=== PATIENT | female | born 1960 | race Caucasian/White ===

== ENCOUNTER 2016-12-19 07:25 | Inpatient (IN) | payer OTHER ==
[~2016-12-19] VITALS: Ht 160 cm; Wt 145.8 kg
--- NOTE | ~2016-12-19 | HC ---
[facility] [place] [place] [address] CONSULTATION Name: HOMERO PHILLIPS Joana Room #: 440-P [facility] IN .R.#: [id number] Admission: 12/19/16 Attend Phys: Esther Costa MD Discharge: Date of : 58 Report #: [id number] THIS REPORT FOR: //name// CC: Manpreet Costa DATE OF SERVICE: 12/19/2016 ATTENDING PHYSICIAN: Esther Costa MD CONSULTATION REQUESTED BY: Nunu Serrato RN. REASON FOR CONSULTATION: Fever. HISTORY OF PRESENT ILLNESS: The patient is a 56-year-old white woman admitted through the emergency room with history of fever as high as 102.8. Apparently, she visited with Dr. Archuleta yesterday and was just a routine visit with no complaints whatsoever, but by the time she got into her car, she was feeling cold, needing to warm up the car. She later on went onto developing high fevers of 102.8 associated with headaches and significant neck pain. The patient even reported photophobia. On account of this, she underwent a spinal tap in the emergency room and the CSF, totally normal. At present, the patient continues to have body aches and pains and significant neck pain worsened by any movement. She is scheduled to have a CT scan of the neck. The patient remembers that in 2008 or thereabout had cellulitis of the leg with group G streptococcus infection and she believes I took care of her at that point in time. Somehow those records were deleted. PAST MEDICAL HISTORY: Morbid obesity. Hypertension. Cardiomyopathy, congestive heart failure. Migraine. Obstructive sleep apnea. Diabetes mellitus. Diagnostic laparoscopic and open repair of incarcerated abdominal wall hernia. History of . MEDICATIONS: She is on treatment with telmisartan (Micardis) 80 mg daily, amlodipine 10 mg daily, spironolactone 50 mg daily, metformin 500 mg b.i.d. with meal, glimepiride 4 mg daily, and Lasix 40 mg daily. Here in the hospital, the patient has received treatment with spironolactone, amlodipine, pantoprazole, docusate, insulin lispro per sliding scale, intravenous fluids, sodium chloride 1000 mL every 12 hours, p.r.n. acetaminophen and glucagon. She had received vancomycin single dose, azithromycin, acyclovir, and Rocephin 2 g. SOCIAL HISTORY: . Disabled. 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 No tobacco. No alcohol. REVIEW OF SYSTEMS: Essentially noncontributory besides what has been stated above. [address] [address] CONSULTATION Name: HOMERO PHILLIPS Room #: 440-P [facility] IN M.R.#: [id number] Admission: 12/19/16 Attend Phys: Esther Costa MD Discharge: Date of : 58 Report #: [id number] PHYSICAL EXAMINATION: GENERAL: This is a morbidly obese white woman. VITAL SIGNS: Temperature 100, pulse 109, respirations 18, BP 165/85, height 5 feet 3 inches, and weight 320 pounds. HEENMT: Head normocephalic and atraumatic. Pupils reactive. Mouth, carious teeth, missing teeth, poor oral hygiene, needs dental extraction. NECK: Stiff. Difficult to examine because of obesity. LUNGS: Clear. HEART: S1, S2. No gallop. ABDOMEN: Morbidly obese with a huge abdominal wall panniculus with hyperpigmentation and scaling of the skin of the lower abdomen panniculus. PELVIC: Deferred. RECTAL: Deferred. EXTREMITIES: No clubbing or cyanosis. NEUROLOGIC: Grossly within normal limits. LABORATORY DATA: Spinal fluid revealed a glucose of 144 mg/dL, remainder normal. Sodium 131, potassium 4.1, BUN 19, creatinine 1.4, glucose 289, total bilirubin 1.3, alkaline phosphatase 104, albumin 2.7, lactic acid initially elevated at 2.3, goes down to 1.1 rapidly, protime 9.9. WBC 16,400, hemoglobin 11.9 g/dL, platelets 315,000. White blood cell count differential 78% neutrophils, 14% lymphocytes. The urinalysis revealed trace protein, 1+ ketones, otherwise negative. MICROBIOLOGY DATA: Blood cultures were obtained, they remained negative so far. Nasopharyngeal swab negative for influenza A and B antigens. Note is made on April 2009, she had group G streptococcus infection bacteremia secondary to cellulitis, right lower extremity. RADIOLOGY EVALUATION: Chest x-ray done on admission revealed no significant abnormalities. A CT scan of the brain revealed no significant abnormalities. ASSESSMENT: 1. Febrile illness, associated with significant neck pain of undetermined etiology, must rule out a pharyngeal abscess, though I doubt. 2. Morbid obesity. 3. Leukocytosis. 4. Mild lactic acidosis, improved, resolved. 5. Anemia. 6. History of cellulitis, right lower extremity complicated by bacteremia with group G streptococcus. 7. Cardiomyopathy. 8. Obstructive sleep apnea. 9. Type 2 diabetes mellitus. [facility] [address] [place] [address] CONSULTATION Name: HOMERO PHILLIPS Room #: 440-P ADM IN M.R.#: [id number] Admission: 12/19/16 Attend Phys: Esthre Costa MD Discharge: Date of : 58 Report #: [id number] SUGGESTIONS: Recommend Rocephin 1 gram IV daily. Obtain CRP, ESR and procalcitonin. Doubt we are dealing with a bacterial infection. If the patient continues to look this well and cultures remain negative, may discontinue all antibiotics within 24-48 hours. Thank you very much for requesting my suggestions in the care of your patient and I will continue to follow her along with you. <ELECTRONICALLY SIGNED> By: Chele Modi MD 12/23/16 1232 [id number] Chele Modi MD /nt
[~2016-12-19 07:25] MED LIST: ALDACTONE50 MG PO; AMARYL4 MG PO; LASIX 40 MG TAB40 M2 PO; METFORMIN HCL500 MG PO; MICARDIS 80 MG80 MG PO; NORVASC10 MG PO
[2016-12-19 07:31] VITALS: BP 165/85
[2016-12-19] MEDS ORDERED: LASIX 40 MG TAB40 M2 PO (07:52)
[2016-12-19 08:12] LABS: ABSOLUTE NEUTROPHILS 12.8 thou/uL (1.4-8.2); BASOPHILS 0.3 % (0.0-2.0); EOSINOPHILS 0.6 % (0.0-3.0); HEMATOCRIT 35.9 % (37.0-47.0); HEMOGLOBIN 11.9 gm/dL (12.0-15.0); LYMPHOCYTES 14.5 % (24.0-44.0); MCH 28.2 pg (26.0-34.0); MCHC 33.1 g/dL (28.0-37.0); MCV 85.4 fL (80.0-100.0); MONOCYTES 6.4 % (1.0-8.0); PLATELET COUNT 315 thou/uL (150-400); POLYS 78.2 % (36.0-66.0); RBC 4.21 mil/uL (4.20-5.00); RDW 14.7 % (10.5-14.5); WBC 16.4 thou/uL (4.0-11.0)
[2016-12-19 08:14] LABS: MANUAL DIFF NO
[2016-12-19 08:22] LABS: CALCIUM 8.8 mg/dL (8.5-10.1); CREATININE 1.4 mg/dL (0.6-1.3); POTASSIUM 4.1 mmol/L (3.5-5.1)
[2016-12-19 08:27] LABS: ALBUMIN 2.7 g/dL (3.4-5.0); TOTAL BILIRUBIN 1.3 mg/dL (<0.1-1.0); TOTAL PROTEIN 6.9 g/dL (6.4-8.2)
[2016-12-19 09:05] LABS: PROTIME 9.9 Seconds (9.3-11.4)
[2016-12-19 09:09] LABS: DIRECT BILIRUBIN 0.2 mg/dL (<0.1-0.3)
[2016-12-19 09:57] LABS: CSF GLUCOSE 144 mg/dL (40-70); CSF PROTEIN 27 mg/dL (15-45)
[2016-12-19 09:59] LABS: URINE BLOOD NEGATIVE (Negative); URINE COLOR YELLOW; URINE GLUCOSE-RANDOM* NEGATIVE (Negative); URINE KETONES 1+ (Negative); URINE LEUKOCYTES-REFLEX NEGATIVE (Negative); URINE PROTEIN (DIPSTICK) TRACE (Negative); URINE SPECIFIC GRAVITY 1.025 (1.003-1.035)
[2016-12-19 09:59] LABS: MANUAL DIFF NO
[2016-12-19 10:00] LABS: CSF CLARITY CLEAR; CSF COLOR COLORLESS; CSF WBC 3 /mm3 (0-10); NUMBER OF TUBES 4; VOLUME 14.5 ml
[2016-12-19 10:03] LABS: ICTOTEST (BILI CONFIRMATORY) Negative (Negative); URINE BILIRUBIN NEGATIVE (Negative)
[2016-12-19 13:00] VITALS: BP 140/72
[2016-12-19 13:01] VITALS: BP 164/82
[2016-12-19 16:00] VITALS: BP 136/83
[2016-12-19 20:20] VITALS: BP 133/62
[2016-12-19 22:06] LABS: GLYCOHEMOGLOBIN (HGB A1C) 9.3 % (4.8-5.6)
[2016-12-20 03:30] VITALS: BP 122/72
[2016-12-20 05:21] LABS: ABSOLUTE NEUTROPHILS 7.9 thou/uL (1.4-8.2); BASOPHILS 0.3 % (0.0-2.0); EOSINOPHILS 2.2 % (0.0-3.0); HEMOGLOBIN 10.6 gm/dL (12.0-15.0); LYMPHOCYTES 20.1 % (24.0-44.0); MCH 27.9 pg (26.0-34.0); MCHC 32.2 g/dL (28.0-37.0); MCV 86.8 fL (80.0-100.0); MONOCYTES 8.2 % (1.0-8.0); PLATELET COUNT 283 thou/uL (150-400); POLYS 69.2 % (36.0-66.0); RDW 14.5 % (10.5-14.5); WBC 11.4 thou/uL (4.0-11.0)
[2016-12-20 05:29] LABS: MANUAL DIFF NO
[2016-12-20 05:34] LABS: ALBUMIN 2.4 g/dL (3.4-5.0); CREATININE 1.2 mg/dL (0.6-1.3); MAGNESIUM 1.9 mg/dL (1.8-2.4); POTASSIUM 3.8 mmol/L (3.5-5.1); TOTAL BILIRUBIN 0.7 mg/dL (<0.1-1.0); TOTAL PROTEIN 6.2 g/dL (6.4-8.2)
[2016-12-20 08:00] VITALS: BP 127/58
[2016-12-20 11:15] VITALS: BP 121/61
[2016-12-20 20:25] VITALS: BP 130/63
[2016-12-21 03:40] VITALS: BP 131/59
[2016-12-21 05:34] LABS: ABSOLUTE NEUTROPHILS 6.4 thou/uL (1.4-8.2); BASOPHILS 0.5 % (0.0-2.0); EOSINOPHILS 3.5 % (0.0-3.0); HEMATOCRIT 34.2 % (37.0-47.0); HEMOGLOBIN 11.1 gm/dL (12.0-15.0); LYMPHOCYTES 22.3 % (24.0-44.0); MCH 28.1 pg (26.0-34.0); MCHC 32.4 g/dL (28.0-37.0); MCV 86.8 fL (80.0-100.0); MONOCYTES 7.6 % (1.0-8.0); PLATELET COUNT 316 thou/uL (150-400); POLYS 66.1 % (36.0-66.0); RBC 3.94 mil/uL (4.20-5.00); RDW 14.3 % (10.5-14.5); WBC 9.6 thou/uL (4.0-11.0)
[2016-12-21 05:35] LABS: MANUAL DIFF NO
[2016-12-21 05:44] LABS: CALCIUM 8.2 mg/dL (8.5-10.1); CREATININE 1.3 mg/dL (0.6-1.3)
[2016-12-21 08:00] VITALS: BP 138/73
[2016-12-21 12:00] VITALS: BP 115/76
[2016-12-21 15:59] VITALS: BP 145/71
[2016-12-21 19:40] VITALS: BP 131/53
[2016-12-22 04:20] VITALS: BP 140/58
[2016-12-22 09:30] VITALS: BP 135/56
[2016-12-22 11:30] VITALS: BP 156/63
[2016-12-22 16:00] VITALS: BP 140/65
[2016-12-22 19:55] VITALS: BP 140/71
[2016-12-23 04:13] VITALS: BP 142/79
[2016-12-23 05:26] LABS: ABSOLUTE NEUTROPHILS 5.3 thou/uL (1.4-8.2); BASOPHILS 0.7 % (0.0-2.0); EOSINOPHILS 3.8 % (0.0-3.0); HEMATOCRIT 35.8 % (37.0-47.0); HEMOGLOBIN 11.7 gm/dL (12.0-15.0); LYMPHOCYTES 31.2 % (24.0-44.0); MANUAL DIFF NO; MCH 28.3 pg (26.0-34.0); MCHC 32.7 g/dL (28.0-37.0); MCV 86.5 fL (80.0-100.0); MONOCYTES 6.1 % (1.0-8.0); PLATELET COUNT 366 thou/uL (150-400); POLYS 58.2 % (36.0-66.0); RBC 4.14 mil/uL (4.20-5.00); RDW 14.3 % (10.5-14.5); WBC 9.1 thou/uL (4.0-11.0)
[2016-12-23 05:39] LABS: CALCIUM 8.9 mg/dL (8.5-10.1); POTASSIUM 3.9 mmol/L (3.5-5.1)
[2016-12-23 07:40] VITALS: BP 156/77
[2016-12-23] MEDS ORDERED: LANTUS100 UNIT/M SUBQ (13:43)
[2016-12-23 13:57] VITALS: BP 156/77
[2016-12-23] MEDS ORDERED: AMOXICILLIN500 M1 PO (13:59)
== END 2016-12-23 15:10 | disposition home or self-care (01) | DRG 871 ==
LOC: ER 07:25 → EROBS 10:32 → 4S 10:32
PROVIDERS: Emergency Medicine; Internal Medicine Endocrinology, Diabetes & Metabolism; Nurse Practitioner
PROC: B01BZZZ Fluoroscopy of Spinal Cord (ICD-10-PCS; principal; 2016-12-19)
PROC: 009U3ZX Drainage of Spinal Canal, Percutaneous Approach, Diagnostic (ICD-10-PCS; principal; 2016-12-19)
DX: A40.3 Sepsis due to Streptococcus pneumoniae (principal); N17.0 Acute kidney failure with tubular necrosis; E87.1 Hypo-osmolality and hyponatremia; I42.9 Cardiomyopathy, unspecified; E87.2 Acidosis; Z68.43 Body mass index [BMI] 50.0-59.9, adult; E11.65 Type 2 diabetes mellitus with hyperglycemia; I50.9 Heart failure, unspecified; E66.01 Morbid (severe) obesity due to excess calories; I11.0 Hypertensive heart disease with heart failure; M19.90 Unspecified osteoarthritis, unspecified site; G43.909 Migraine, unspecified, not intractable, without status migrainosus; G47.33 Obstructive sleep apnea (adult) (pediatric); D64.9 Anemia, unspecified; Z23 Encounter for immunization; Z88.8 Allergy status to other drugs, medicaments and biological substances
CPT/HCPCS: 10100

== ENCOUNTER 2021-03-06 14:36 | Inpatient (IN) | payer OTHER ==
[~2021-03-06] VITALS: Ht 160 cm; Wt 141.3 kg
--- NOTE | ~2021-03-06 | EMS ---
[address] [address] EMS Patient Care Report Name: HOMERO PHILLIPS Room #: REG TU [place]#: [id number] Admission: 03/06/21 Attend Phys: Discharge: Date of : 58 Report #: [id number] THIS REPORT FOR: //name// Report Transmitted: 03/06/2021 15:00 EMS Care Summary [place], [place]/[facility] Incident [id number] @ 03/06/2021 13:59 Incident Location [address] [place] [address] Patient HOMERO PHILLIPS Female, 60 Years 1960 Patient Address [address] [place] [address] Patient History Congestive Heart Failure (CHF),Hypertension (HTN),Type 1 Diabetes, Patient Allergies No known allergies, Patient Medications Insulin, Chief Complaint SOA Disposition Transported No Lights/[place] Dispatch Reason Breathing Problem Transported To [facility] Narrative DISPATCHED EMERGENCY ON A BREATHING PROBLEM. LOLA Jackman ON SCENE UPON ARRIVAL. 66 Y/O FEMALE SITTING IN CHAIR IN LIVING ROOM APPEARING IN NO IMMEDIATE DISTRESS. GCS 15 AND A/OX4. CONSENTS FOR TX AND TRANSPORTATION. ADVISED BY LOLA Jackman MEDIC THAT PT WAS ON 4 LPM OF HER HUSBANDS HOME OXYGEN PRIOR TO THEIR [address] [address] EMS Patient Care Report Name: HOMERO PHILLIPS Room #: REG Concha#: [id number] Admission: 03/06/21 Attend Phys: Discharge: Date of : 58 Report #: [id number] ARRIVAL. THEY OBTAINED V/S'S AND ADVISED THAT PT'S OXYGEN SATURATION WAS 88%. THEY PLACED PT ON A NON REBREATHER AND OXYGEN SATURATION IMPROVED TO 100%. PT STATES THAT SHE HAS CONGESTIVE HEART FAILURE AND HAS BEEN OUT OF HER MEDICATION FOR SEVERAL MONTHS. STATES SHE HAS BEEN HAVING PROBLEMS BREATHING FOR ABOUT A MONTH BUT HAS INCREASINGLY BECOME WORSE TODAY. STATES SHE FEELS DIZZY. DENIES ANY C/P OR ANY OTHER MEDICAL COMPLAINTS. MOVED WITHOUT INCIDENT TO AMBULANCE VIA STRETCHER. PLACED ON MONITOR AND V/S'S OBTAINED. PT STATES THAT SHE FEELS LIKE THE OXYGEN MASK IS SMOTHERING HER. SWITCHED TO OXYGEN VIA N/C AT 6 LPM. IV ESTABLISHED. TRANSPORTED TO [facility] PER PT REQUEST. REASSESSED ENROUTE. V/S'S OBTAINED. OXYGEN SATURATION REMAINS IMPROVED. R/R REMAINS NON LABORED. REMAINS GCS 15 AND ALERT. REPORT CALLED TO HOSPITAL. MOVED WITHOUT INCIDENT TO ER HOSPITAL BED 9. PT HAS FECAL MATTER ON EXTREMITIES SO NURSE SIGNED FOR PT. PT CARE TRANFERRED TO ED RN. Initial Vitals @PTAR: 20,BP: 176/93,GCS: 15,SpO2: 88,Revised Trauma: 12, @14:19P: 108,R: 18,BP: 190/95,Pain: 0/10,GCS: 15,Glucose: 329,CO: 3,SpO2: 95,Revised Trauma: 12, @14:24P: 102,R: 18,BP: 165/101,Pain: 0/10,GCS: 15,CO: 6,SpO2: 98,Revised Trauma: 12, Assessments @14:12MENTAL:Person Oriented,Time Oriented,Place Oriented,Event Oriented,SKIN:HEENT:Eyes: Left Pupil: 4-mm,Eyes: Right Pupil: 4-mm,Head/Face: No Abnormalities,Neck/Airway: No Abnormalities,LUNG SOUNDS:General: No Abnormalities,ABDOMEN:General: No Abnormalities,PELVIS//GI:EXTREMITIES:Capillary Refill: Left Lower: < 2 Sec,Capillary Refill: Right Lower: < 2 Sec,Capillary Refill: Left Upper: < 2 Sec,Capillary Refill: Right Upper: < 2 Sec,Left Arm: No Abnormalities,Right Arm: No Abnormalities,Left Leg: No Abnormalities,Right Leg: No Abnormalities,PULSE:Radial: 2+ Normal,NEURO:No Abnormalities, Impression Acute Respiratory Distress (Dyspnea) Procedures @14:203-Lead ECGResponse: UnchangedSucceeded@14:24Saline Lock 10cc (20 ga) Site: Hand-LeftResponse: UnchangedSucceeded@PTAOxygen FlowRate: 4 Device: Nasal Cannula (NC) Response: UnchangedFailed@14:12ALS AssessmentResponse: UnchangedSucceeded@PTAOxygen FlowRate: 15 Device: Non Re-breather Mask (NRB) Response: ImprovedSucceeded@14:15StretcherResponse: Unchanged@14:22Oxygen FlowRate: 6 Device: Nasal Cannula (NC) Response: ImprovedSucceeded Timeline SEWER MAINTENANCE SUPERVISOR,Oxygen FlowRate: 4 Device: Nasal Cannula (NC) Response: UnchangedFailed, SEWER MAINTENANCE SUPERVISOR,Oxygen FlowRate: 15 Device: Non Re-breather Mask (NRB) Response: [facility] [address] [place] [address] EMS Patient Care Report Name: HOMERO PHILLIPS Room #: [facility] Concha#: [id number] Admission: 03/06/21 Attend Phys: Discharge: Date of : 58 Report #: [id number] ImprovedSucceeded, SEWER MAINTENANCE SUPERVISOR,BP: 176/93 M,PULSE: ,RR: 20 R,SPO2: 88 Ox,ETCO2: ,BG: ,PAIN: ,GCS: 15, 13:57,Call Received 13:57,Dispatch Notified 13:59,Dispatched 14:00,En Route 14:10,On Scene 14:12,At Patient 14:12,ALS Assessment,Response: UnchangedSucceeded, 14:15,Stretcher,Response: Unchanged 14:19,BP: 190/95 M,PULSE: 108,RR: 18 R,SPO2: 95 Ox,ETCO2: ,B,PAIN: 0,GCS: 15, 14:20,3-Lead ECG,Response: UnchangedSucceeded, 14:22,Oxygen FlowRate: 6 Device: Nasal Cannula (NC) Response: ImprovedSucceeded, 14:24,Saline Lock 10cc 20 ga Site: Hand-Left,Response: UnchangedSucceeded, 14:24,BP: 165/101 M,PULSE: 102,RR: 18 R,SPO2: 98 Ox,ETCO2: ,BG: ,PAIN: 0,GCS: 15, 14:26,Depart Scene 14:32,At Destination 15:00,Call Closed Disclaimer v1.1 Copyright 2020 [employer] This EMS Care Summary contains data elements from the applicable legal record (which may be displayed differently). It is designed to provide pertinent information for the following purposes: continuity of care, clinical quality, and state data reporting. The complete legal record is available to ED staff and administrators of the receiving hospital in [employer]'s Patient Tracker. All data is provided "as is."
[2021-03-06 14:36] VITALS: BP 166/85
[~2021-03-06 14:36] MED LIST changes: +AMOXICILLIN500 M1 PO; +LANTUS100 UNIT/M SUBQ
[2021-03-06 15:11] LABS: HEMATOCRIT 38.7 % (37.0-47.0); HEMOGLOBIN 12.5 gm/dL (12.0-15.0); MCH 29.4 pg (26.0-34.0); MCHC 32.4 g/dL (28.0-37.0); MCV 90.7 fL (80.0-100.0); PLATELET COUNT 276 thou/uL (150-400); RBC 4.26 mil/uL (4.20-5.00); RDW 14.5 % (10.5-14.5); WBC 9.1 thou/uL (4.0-11.0)
[2021-03-06 15:27] LABS: URINE BLOOD TRACE (Negative); URINE CLARITY CLEAR; URINE COLOR YELLOW; URINE GLUCOSE-RANDOM* 3+ (Negative); URINE KETONES TRACE (Negative); URINE LEUKOCYTES-REFLEX NEGATIVE (Negative); URINE NITRITE-REFLEX NEGATIVE (Negative); URINE PROTEIN (DIPSTICK) 3+ (Negative); URINE SPECIFIC GRAVITY >= 1.030 (1.005-1.035)
--- NOTE | 2021-03-06 15:33 | EKG ---
[place] [address] [place] [address] ELECTROCARDIOGRAM REPORT Name: HOMERO PHILLIPS [facility] [id number] Admission: 03/06/21 Attend Phys: Discharge: Date of : 58 Report #: [id number] [facility] ED Test Date: 2021-03-06 Test Time: 14:53:18 Pat Name: HOMERO PHILLIPS Department: Room: Gender: F Lead Vulcanizing Operator: MATILDE : 1960 Requested By: Jamal Quinn Order Number: [id number] MD: Hood Anaya Measurements Intervals [place] Rate: 95 P: 35 NV: 155 QRS: 43 QRSD: 86 T: 55 QT: 355 QTc: 447 Interpretive Statements Sinus rhythm Ventricular premature complex Compared to ECG 12/26/2015 22:18:46 Ventricular premature complex(es) now present ST (T wave) deviation no longer present Electronically Signed On 03-06-2021 15:33:45 CDT by Hood Anaya [email or web address] <ELECTRONICALLY SIGNED> By: Hood Anaya MD, [facility] 03/06/21 1533 D: [id number] Hood Anaya MD, FAC /EPI
[2021-03-06 15:50] LABS: ABSOLUTE NEUTROPHILS 6.8 thou/uL (1.4-8.2)
[2021-03-06 15:53] LABS: ICTOTEST (BILI CONFIRMATORY) Negative (Negative); URINE BILIRUBIN NEGATIVE (Negative)
[2021-03-06 15:59] LABS: SQUAMOUS 4-10 Moderate /LPF (0-3); URINE WBC-REFLEX 0-5 Rare /HPF (0-5)
[2021-03-06 16:00] LABS: HYALINE CASTS 0-3 Few /LPF (None Seen); MUCUS >6 Heavy strn/LPF (None Seen); URINE RBC 1-2 Rare /HPF (NONE SEEN)
[2021-03-06 16:01] LABS: CRYSTALS None Seen /LPF (None Seen)
[2021-03-06 16:04] LABS: ANION GAP 5 mmol/L (7-16); BUN 21 mg/dL (7-18); CALCIUM 9.4 mg/dL (8.5-10.1); CHLORIDE 97 mmol/L (98-107); CO2 36 mmol/L (21-32); CREATININE 1.2 mg/dL (0.6-1.0); GLUCOSE 362 mg/dL (74-106); POTASSIUM 3.9 mmol/L (3.5-5.1); SODIUM 138 mmol/L (136-145)
[2021-03-06 16:07] LABS: ALBUMIN 3.1 g/dL (3.4-5.0); SGOT 13 U/L (15-37); SGPT 20 U/L (30-65); TOTAL BILIRUBIN 1.3 mg/dL (0.2-1.0); TROPONIN-I <0.06 ng/mL (<0.06)
[2021-03-06 18:25] LABS: FOLIC ACID 6.2 ng/mL (8.6-58.9)
[2021-03-06] MEDS ORDERED: LIPITOR10 MG PO (19:33)
[2021-03-06] MEDS ORDERED: TOUJEO MAX300 UNIT/1 SUBQ (19:34)
[2021-03-06] MEDS ORDERED: ASA81BEC PO (19:35)
[2021-03-06] MEDS ORDERED: NAPROXEN500 MG PO (19:36)
[2021-03-06] MEDS ORDERED: MELATONIN3 M1 PO (19:36)
[2021-03-06] MEDS ORDERED: IBUPROFEN200 M1 PO (19:36)
[2021-03-06] MEDS ORDERED: ACETAMINOPHEN325 MG PO (19:37)
[2021-03-06 19:43] VITALS: BP 169/85
[2021-03-06 20:30] VITALS: BP 169/85
--- NOTE | 2021-03-06 21:02 | NUR ---
HAND OFF TOOL SENT
[2021-03-07 01:06] LABS: GLYCOHEMOGLOBIN (HGB A1C) 11.9 % (4.8-5.6)
[2021-03-07 05:17] LABS: ABSOLUTE NEUTROPHILS 8.7 thou/uL (1.4-8.2); BASOPHILS 0.4 % (0.0-2.0); EOSINOPHILS 0.3 % (0.0-3.0); HEMATOCRIT 39.9 % (37.0-47.0); HEMOGLOBIN 13.1 gm/dL (12.0-15.0); LYMPHOCYTES 5.8 % (24.0-44.0); MCH 29.8 pg (26.0-34.0); MCHC 32.8 g/dL (28.0-37.0); MCV 90.9 fL (80.0-100.0); MONOCYTES 1.3 % (1.0-8.0); PLATELET COUNT 251 thou/uL (150-400); POLYS 92.2 % (36.0-66.0); RBC 4.39 mil/uL (4.20-5.00); WBC 9.4 thou/uL (4.0-11.0)
[2021-03-07 05:21] LABS: CALCIUM 9.1 mg/dL (8.5-10.1); CREATININE 1.2 mg/dL (0.6-1.0); MAGNESIUM 1.7 mg/dL (1.8-2.4); POTASSIUM 3.9 mmol/L (3.5-5.1)
[2021-03-07 07:57] VITALS: BP 179/99
--- NOTE | 2021-03-07 07:58 | NUR ---
RECEIVED CARE OF THIS PATIENT AT 2105 FROM ED VIA CART ACCOMPANIED BY ED JOSE. PATIENT ALERT AND ORIENTED X4. HAS SEVERAL SMALL SCABBED SORES ALL OVER. HAS ONE ON HER R SHOULDER. SHE IS RED UNER BREAST, PANUS AND ON BOTTOM. C/O H/A, TYLENOL GIVEN WITH COMPLETE RELIEF. O2 AT 6L VIA NC. USES CPAP AT HS, THE ONE WE HAVE WAS TOO SMALL. WILL BRING HERS FROM HOME. SLEPT NONE THIS SHIFT.
--- NOTE | 2021-03-07 09:37 | NUR ---
During RT assesement patient was found on 6L. patient stated that during the night she had shortness of breath. patient has since received lasix lowered oxygen to 4L patient SAT 92% on 4L. Her will bring in home cpap today pt. unbale to tolerate ours.
--- NOTE | 2021-03-07 10:22 | 2DMMODE ---
[facility] [address] 2 D/M-MODE ECHOCARDIOGRAM Name: HOMERO PHILLIPS Room #: 454-P ADM IN ..#: [id number] Admission: 03/06/21 Attend Phys: Ian Lan MD Discharge: Date of : 58 Report #: [id number] THIS REPORT FOR: cc: Manpreet Archuleta MD, Michael D. MD Santiago, Patrick MD [facility] ~ APPROVED REPORT Study performed: 03/07/2021 08:38:31 EXAM: Comprehensive 2D, Doppler, and color-flow Echocardiogram Patient Location: Bedside Room #: 454 Status: routine BSA: 2.27 HR: 91 bpm BP: 169/85 mmHg Rhythm: NSR Other Information Study Quality: Good Indications Congestive Heart Failure Diabetes Dyspnea Cardiomyopathy Hypertension/HDD 2D Dimensions RVDd: 40.11 mm IVSd: 12.05 (7-11mm) LVOT Diam: 19.32 (18-24mm) LVDd: 32.94 mm PWd: 11.81 (7-11mm) Ascending Ao: 34.19 (22-36mm) LVDs: 23.89 (25-40mm) Left Atrium: 37.36 (27-40mm) Aortic Root: 24.62 mm IVC: 24.00 mm Volumes Left Atrial Volume (Systole) Single Plane 4CH: 77.53 mL Single Plane 2CH: 66.56 mL LA ESV Index: 34.00 mL/m2 Aortic Valve [facility] [address] [place] [address] 2 D/M-MODE ECHOCARDIOGRAM Name: HOMERO PHILLIPS Room #: 454-P [facility] IN [facility].#: [id number] Admission: 03/06/21 Attend Phys: Ian Lan MD Discharge: Date of : 58 Report #: [id number] AoV Peak Smith.: 1.69 m/s AO Peak Gr.: 11.38 mmHg LVOT Max P.90 mmHg LVOT Max V: 1.11 m/s KARL Vmax: 1.92 cm2 Mitral Valve E/A Ratio: 1.2 MV Decel. Time: 193.93 ms MV E Max Smith.: 1.18 m/s MV A Smith.: 0.95 m/s MV PHT: 56.24 ms IVRT: 79.58 ms Pulmonary Valve PV Peak Smith.: 1.10 m/s PV Peak Gr.: 4.86 mmHg Pulmonary Vein P Vein S: 0.53 m/s P Vein A: 0.31 m/s P Vein D: 0.42 m/s P Vein A Dur.: 90.0 msec P Vein S/D Ratio: 1.26 Tricuspid Valve TR Peak Smith.: 3.01 m/s TR Peak Gr.: 36.31 mmHg PA Pressure: 46.00 mmHg Left Ventricle The left ventricle is normal size. There is normal LV segmental wall motion. Mild concentric left ventricular hypertrophy. The left ventricular systolic function is normal. The left ventricular ejection fraction is within the normal range. LVEF is 55%. Grade II - pseudonormal filling dynamics. Right Ventricle The right ventricle is normal size. The right ventricular systolic function is normal. Fat pad noted on the right ventricular free wall, normal variant. Atria Left atrium is dilated. Right atrium is dilated. Aortic Valve The aortic valve is normal in structure. Mild aortic regurgitation. There is no aortic valvular stenosis. Mitral Valve [facility] [address] [place] [address] 2 D/M-MODE ECHOCARDIOGRAM Name: HOMERO PHILLIPS Room #: 454-P [facility] IN [facility].#: [id number] Admission: 03/06/21 Attend Phys: Ian Lan MD Discharge: Date of : 58 Report #: [id number] The mitral valve is normal in structure. Moderate mitral regurgitation. No evidence of mitral valve stenosis. Tricuspid Valve The tricuspid valve is normal in structure. There is mild tricuspid regurgitation. Estimated PAP 46 mmHg. There is moderate pulmonary hypertension. Pulmonic Valve The pulmonary valve is normal in structure. Trace pulmonic regurgitation. Great Vessels The aortic root is normal in size. IVC is dilated and collapses >50% with inspiration. Pericardium There is no pericardial effusion. <Conclusion> Normal left ventricular size with mild concentric hypertrophy Ejection fraction 55% Grade 2 diastolic dysfunction Normal right ventricular size/function Mild biatrial enlargement Color-flow Doppler study was performed of the aortic/mitral/tricuspid/pulmonary valve Mild aortic valve insufficiency Mild-moderate mitral valve insufficiency Mild tricuspid valve insufficiency Pulmonary systolic pressure estimated 46 mmHg Normal aortic root size No pericardial effusion <ELECTRONICALLY SIGNED> By: Hood Anaya MD, FACC 03/07/21 1022 102 102 Hood Anaya MD, FACC /INF
[2021-03-07 10:40] VITALS: BP 179/99
[2021-03-07 11:58] LABS: HEMATOCRIT 40.4 % (37.0-47.0); HEMOGLOBIN 13.1 gm/dL (12.0-15.0); MCH 29.2 pg (26.0-34.0); MCHC 32.3 g/dL (28.0-37.0); MCV 90.4 fL (80.0-100.0); RBC 4.47 mil/uL (4.20-5.00); RDW 14.1 % (10.5-14.5)
[2021-03-07 12:52] LABS: CALCIUM 8.9 mg/dL (8.5-10.1); CREATININE 1.6 mg/dL (0.6-1.0); POTASSIUM 3.8 mmol/L (3.5-5.1)
--- NOTE | 2021-03-07 12:54 | NUR ---
ASSUMED CARE OF PATIENT AT SHIFT CHANGE. ASSESSMENT CHARTED. MEDICATIONS ADMINSTERED PER EMAR. VSS. PATIENT IS A&OX4 AND MAKES NEEDS KNOWN. PATIENT DENIES PAIN. PATIENT DID NOT GET UP WITH PT; WAS MADE AWARE FSBS WAS HIGHER THAN 500 AND SHE STATED "I DON'T WANT TO WORK WITH PHYSICAL THERAPY IF MY BLOOD SUGAR IS THAT HIGH. AFTER FSBS THIS AM FOR BKFST, PROVIDER WAS NOTIFIED OF 457MG/DL AND STARTED ON MODERATE DOSE. UPON FSBS FOR LUNCH, PATIENT WAS TOO HIGH FOR GLUCOMETER TO REGISTER X2. STAT CBC&BMP WAS ORDERED AND CRITICALLY HIGH FSBS AT 623 MG/DL WAS REPORTED. PROVIDER NOTIFIED. INSULIN GTT ORDERED. BLISTER PACK OPERATOR WAS NOTIFIED; TRANSFER IN PROCESS. COOK REMAINS IN PLACE AND PATENT; POLYURIA SECONDARY TO LASIX ADMINISTRATION NOTED. REDDENED AREAS UNDER SKIN FOLDS NOTED; VINE FRUIT FARMING SUPERVISOR CONSULTED. CODE STATUS ENTERED (FULL CODE). ON CONTINUOUS PULSE OXIMETRY; SATS AT LOW 90'S ON 4-6L PRN. PULMONOLOGY CONSULTED; <50% O2 USAGE FROM BASELINE. TURNS ENCOURAGED; PATIENT STATES SHE CAN TURN SELF. RESPIRATORY PATTERN STILL REGULAR, KUSSMAUL RESPIRATIONS NOT NOTED. FRUITY BREATH ABSENT. STILL A&OX4 NOT APPEARING TO BE CONFUSED. PATIENT EDUCATED ON CALLING IF FEELING DIFFERENT; AWARE AND COMPLIANT. FREQUENT MONITORING CONTINUED UNTIL PATIENT TRANSFERS.
--- NOTE | 2021-03-07 14:07 | NUR ---
WOUND CONSULT; THE SKIN FOLDS ON THE RIGHT ARE MORE INFLAMMED THAN THE RIGHT. A FUNGAL ETIOLOGY IS LIKELY. A VERY MILD ODOR IS PRESENT. THE PATIENT IS PLEASANT AND W/O COMPLAINTAS AT THIS TIME. RECCOMMENDATIONS; INTERDRY TO LAURI AFFECTED SKIN FOLD CHANGE M/W/F OR PRN. DISCUSSED WITH JOSE DE JESUS
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
--- NOTE | 2021-03-07 15:33 | NUR ---
PT TX FROM 4W APPROX 1500 FOR IV INSULIN GTT INIATION. PT A&OX4 PT AFEBRILE, POLYUREA, NO BM, APPROPRIATE APPETITE. PT HAS BEEN THOUROUGHLY UPDATED AND EDUCATED ON PT CONDITION AND POC. PT SLOWLY PROGRESSING TOWARDS POC.
[2021-03-07 15:51] VITALS: BP 157/94
[2021-03-07 17:10] LABS: BE(vivo) 6.2 mmol/L (-2 to +3); HCO3 30.4 mmol/L (22.0-26.0); PCO2 41.9 mmHg (35.0-45.0); PO2 67.6 mmHg (80.0-100.0); pH 7.478 (7.360-7.450); sO2 94.6 % (92.0-98.0)
[2021-03-07 19:19] VITALS: BP 168/88
[2021-03-08] VITALS (8 sets, daily range): BP systolic 118–153; BP diastolic 71–89
[2021-03-08 04:36] LABS: HEMATOCRIT 38.4 % (37.0-47.0); HEMOGLOBIN 12.5 gm/dL (12.0-15.0); MCH 29.6 pg (26.0-34.0); MCHC 32.4 g/dL (28.0-37.0); MCV 91.2 fL (80.0-100.0); RBC 4.21 mil/uL (4.20-5.00); WBC 11.2 thou/uL (4.0-11.0)
[2021-03-08 05:10] LABS: CALCIUM 9.1 mg/dL (8.5-10.1); CREATININE 1.4 mg/dL (0.6-1.0); POTASSIUM 3.1 mmol/L (3.5-5.1)
--- NOTE | 2021-03-08 10:13 | NUR ---
Pt assessed r/t high BMI 53.3. Currently being treated for suspected pneumonia. Meds reviewed. DMT2, on insulin. Last A1C 11.9. Other labs BUN 34, Cr 1.4, K 3.1. Pt reports intentional weight loss of ~35# over the last year. She continues to try to lose weight and has long-term goal wt of 150#. She cooks for herself and her family using "carb-friendly recipes and alternatives and smaller portions." Intake/appetite unchanged and pt reports good dietary intake. Pt declined DM and wt loss education at this time. Pt at low nutrition risk.
--- NOTE | 2021-03-08 10:50 | NUR ---
MET WITH PATIENT DISCUSSED POST ACUTE CARE. PATIENT REPORTS SHE FEELS SHE NEEDS POST ACUTE CARE. FAXED REFERRAL TO [facility] PATIENT REPORTS SHE HAS BEEN THERE IN PAST.
--- NOTE | 2021-03-08 15:52 | NUR ---
Ella/[facility]ito accepting of patient they have submitted for auth. Patient is agreeable to dc to [facility] once stable. Her CPAP at bedside. If [facility] has auth on weekend. Call Lucio at [facility] to facilitate discharge Lucio [phone] [facility] and fax [phone] make chart copy [facility] will arrange transport if they cannot call [facility] [phone] Call family to alert of discharge and timeframe
--- NOTE | 2021-03-09 03:21 | NUR ---
PT IS ALERT AND ORIENTED X4. LUNGS ARE CLEAR ON 4 LITERS NASAL CANULA.ON CARB CONTROL DIET. INSULIN PER SCALE FOR DIABETES. COOK TO DD WITH YELLOW URINE. PT RESTING. DENIES ANY COMPLAINTS OF PAIN AT THIS TIME. WILL CONTINUE TO MONTIOR AND ASSESS PER NURSING. NO COMPLAINTS NOTED.
[2021-03-09 03:54] VITALS: BP 125/67
[2021-03-09 07:57] VITALS: BP 138/84
[2021-03-09 11:27] VITALS: BP 146/86
[2021-03-09 15:47] VITALS: BP 114/70
[2021-03-09 19:53] VITALS: BP 136/72
--- NOTE | 2021-03-10 02:50 | NUR ---
RESTED QUIETLY WITH O2 AT 2L/NC AND CPAP THIS SHIFT. PRN PAIN MEDICATIONS FOR RIB PAIN FROM COUGHING. PATIENT REPOSITIONS SELF. WORKING ON GOALS AND PLAN OF CARE FOR NOC. CONTINUE TO ASSES CLOSELY.
[2021-03-10 04:15] LABS: CALCIUM 8.6 mg/dL (8.5-10.1); CREATININE 1.4 mg/dL (0.6-1.0)
[2021-03-10 04:19] LABS: HEMATOCRIT 38.4 % (37.0-47.0); HEMOGLOBIN 12.2 gm/dL (12.0-15.0); MCH 29.3 pg (26.0-34.0); MCHC 31.8 g/dL (28.0-37.0); MCV 92.1 fL (80.0-100.0); RBC 4.17 mil/uL (4.20-5.00); RDW 14.5 % (10.5-14.5); WBC 10.1 thou/uL (4.0-11.0)
[2021-03-10 04:30] VITALS: BP 123/55
[2021-03-10 07:30] VITALS: BP 116/74
[2021-03-10 13:00] VITALS: BP 132/71
[2021-03-10 16:15] VITALS: BP 138/64
--- NOTE | 2021-03-10 16:37 | NUR ---
PT ALERT AND ORIENTED TIMES FOUR. VSS, SR ON TELE, COOK TO DD. PT C/O PAIN PRN PAIN MEDICATIONS CONTROLLING PAIN WELL. PT TOLERATES MEDS AND MEALS, SPOKE WITH PT TO UPDATE ON CARE. WILL CONTINUE TO MONITOR.
[2021-03-10 19:56] VITALS: BP 140/77
[2021-03-11 04:00] VITALS: BP 130/77
--- NOTE | 2021-03-11 04:53 | NUR ---
ASSUMED PT CARE AT 1900, PT IS AWAKE, ALERT AND ORIENTEDX4, SR WITH OCCASIONAL PACS ON TELE, C/O RIB PAIN OF A 04/06, PAIN MEDICINE GIVENX1 WITH RELIEVE, REMAINS ON 2L VIA NASAL CANULA HOME CPAP AT NIGHT, 02SATS STABLE, MEDS GIVEN PER NOV, ASSESSMENTS CHARTED, NO NEEDS AT THIS TIME WILL CONTINUE TO MONITOR AND FOLLOW POC
[2021-03-11 09:06] VITALS: BP 132/72
--- NOTE | 2021-03-11 10:39 | NUR ---
WOUND CARE F/U; ALERT, COOPERATIVE, ASSESSED SKIN FOLDS, PANUS, GROIN AREA, HEALED, POSSIBLE D'C TODAY, WILL SIGN OFF, ENCOURAGED GOOD SKIN CARE, GOOD VERBAL UNDERSTANDING BY PT BUILDING DRAFTER AWARE
[2021-03-11 12:23] VITALS: BP 126/86
--- NOTE | 2021-03-11 16:38 | NUR ---
updated patient cont to await auth with [facility]. [facility] has spoken with insruance and reports they have many referrals reviewing. Gave RN face cover sheet to fax orders if rec auth after hours. Chart copied. [facility] will arrange transport.
[2021-03-11 16:49] VITALS: BP 127/51
--- NOTE | 2021-03-11 18:36 | NUR ---
RECEIVED PATIENT CONSCIOUS AND ORIENTED.ON NASAL CANNULA AT 2LPM SATURATING WELL.WITHFOLEY CATHETER INTACT.NOT IN PAIN OR DISTRESS.TRIED TO AMBULATE TODAY WITH THE PHYSICAL THERAPIST.BLOOD SUGAR LEVEL HAS BEEN CONTROLLED.ALL NEEDS ATTENDED.
[2021-03-11 20:42] VITALS: BP 138/71
--- NOTE | 2021-03-12 04:45 | NUR ---
ASSUMED PT CARE AT 1900, SR ON TELE, ASSESSMENTS CHARTED, COOK CATHETER INTACT, MEDS GIVEN PER NOV, BS CONTROLLED IN THE LOW 100S, NO NEEDS AT THIS TIME, PROGRESSING WELL TOWARDS DISCHARGE, PLAN FOR POSSIBLE DC TO [facility] TODAY
[2021-03-12 04:46] VITALS: BP 127/80
[2021-03-12 09:04] VITALS: BP 145/92
--- NOTE | 2021-03-12 10:55 | NUR ---
PT ALERT AND ORIENTED TIMES FOUR. VSS. SR ON TELE, JOEY TO JESSICA. PT DENIES PAIN AT THIS TIME. PT TOLERATES MEDS AND MEALS. PLANS FOR DISCHARGE TODAY. WILL CONTINUE TO MONITOR.
[2021-03-12 12:44] VITALS: BP 127/70
== END 2021-03-12 13:45 | DRG 291 ==
LOC: ER 14:36 → 2N 17:05 → EROBS 17:05 → 4W 20:56 → 2N 03-07 14:26
PROVIDERS: Emergency Medicine; Internal Medicine Pulmonary Disease; Nurse Practitioner; ADMIT Hospitalist; ATTEND Hospitalist
PROC: 5A09357 Assistance with Respiratory Ventilation, Less than 24 Consecutive Hours, Continuous Positive Airway Pressure (ICD-10-PCS; principal; 2021-03-07)
PROC: 5A09357 Assistance with Respiratory Ventilation, Less than 24 Consecutive Hours, Continuous Positive Airway Pressure (ICD-10-PCS; 2021-03-09)
PROC: 5A09357 Assistance with Respiratory Ventilation, Less than 24 Consecutive Hours, Continuous Positive Airway Pressure (ICD-10-PCS; 2021-03-10)
PROC: 5A09357 Assistance with Respiratory Ventilation, Less than 24 Consecutive Hours, Continuous Positive Airway Pressure (ICD-10-PCS; 2021-03-11)
PROC: 5A09357 Assistance with Respiratory Ventilation, Less than 24 Consecutive Hours, Continuous Positive Airway Pressure (ICD-10-PCS; 2021-03-12)
DX: I11.0 Hypertensive heart disease with heart failure (principal); J18.9 Pneumonia, unspecified organism; J96.01 Acute respiratory failure with hypoxia; R65.11 Systemic inflammatory response syndrome (SIRS) of non-infectious origin with acute organ dysfunction; N17.9 Acute kidney failure, unspecified; E66.2 Morbid (severe) obesity with alveolar hypoventilation; Z68.43 Body mass index [BMI] 50.0-59.9, adult; I50.33 Acute on chronic diastolic (congestive) heart failure; Z20.822 Contact with and (suspected) exposure to COVID-19; E86.0 Dehydration; M19.90 Unspecified osteoarthritis, unspecified site; B33.24 Viral cardiomyopathy; I87.2 Venous insufficiency (chronic) (peripheral); G43.909 Migraine, unspecified, not intractable, without status migrainosus; E11.65 Type 2 diabetes mellitus with hyperglycemia; Z79.82 Long term (current) use of aspirin; Z79.899 Other long term (current) drug therapy; Z91.14 Patient's other noncompliance with medication regimen; Z88.8 Allergy status to other drugs, medicaments and biological substances
CPT/HCPCS: 10040; 10081